=== PATIENT | male | born 1975 | race Caucasian/White ===

== ENCOUNTER 2018-05-09 12:46 | Emergency (ER) | payer MEDICAID ==
--- NOTE | 2018-05-09 13:17 | RAD ---
EXAM DESCRIPTION: Chest,1 View CLINICAL HISTORY: 43 years Male, right sided rhonchi COMPARISON: None. TECHNIQUE: AP portable chest. FINDINGS: Heart size is prominent with normal pulmonary vascularity. Slightly elevated right hemidiaphragm. No consolidating infiltrate. No pulmonary mass or worrisome nodule. No pneumothorax or pleural effusion. Bones are unremarkable. IMPRESSION: No acute process is identified in the chest. Electronically signed by: Edmundo Zurita MD 05/09/2018 1:16 PM CDT
[2018-05-09] MEDS ORDERED: LACTULOSE SYRUP 20 GM/30 ML UD PO ONE (14:00)
[2018-05-09] MEDS ORDERED: levETIRAcetam INJ 500 MG in SODIUM CHLORIDE 0.9% 100ML 100 ML IVPB ONE (15:00)
[2018-05-09] MEDS ORDERED: SODIUM CHLORIDE 0.9% 100ML 100 ML IVPB ONE (15:07)
[2018-05-09] MEDS ORDERED: levETIRAcetam INJ 100 MG/ML VIAL IVPB ONE (15:07)
[2018-05-09] MEDS ORDERED: SODIUM CHLORIDE 0.9% 1000ML 1,000 ML IVS ONE (16:05)
--- NOTE | 2018-05-09 16:58 | ED.PDOC ---
History of Present Illness - General Chief Complaint: Neuro Symptoms/Deficits Time Seen by Provider: 05/09/18 12:53 Source: patient Exam Limitations: clinical condition - History of Present Illness Initial Comments: the patient is a 43-year-old male presenting to the emergency room secondary to altered mental status. He was brought in from a hotel where he is staying. He has a history of seizure disorder along with some cirrhosis and some mild hepatic encephalopathy in the past. He does take seizure medications as well as lactulose. Additionally he has drug screen tested positive for marijuana and opiates of some form he does have Vicoprofen as a medication. The patient reports having had something of a partial seizure earlier. He remembers having a typical aura for him before. The patient was significantly confused upon arrival but over the next 30 minutes has become more alert and oriented. He is very tired. No focal neurological deficits. His was contacted for additional information. He did have a list of his medications as well as his contact information in his pockets. He reports that he has taken his seizure medications today but is due for his midday Keppra and clonazepam dosing. He reports his liver dysfunction is due to alcoholism and he has not drank in several years. Timing/Duration: unsure Severity: mild Improving Factors: nothing Worsening Factors: nothing Associated Symptoms: denies symptoms Allergies/Adverse Reactions: Allergies No Known Drug Allergy Allergy (Verified 05/09/18 12:54) Review of Systems - Review of Systems Constitutional: States: malaise, weakness EENTM: States: no symptoms reported Respiratory: States: no symptoms reported Cardiology: States: no symptoms reported Gastrointestinal/Abdominal: States: no symptoms reported Genitourinary: States: no symptoms reported Musculoskeletal: States: see HPI - the patient does have chronic pain issues Skin: States: no symptoms reported Neurological: States: see HPI Endocrine: States: no symptoms reported Hematologic/Lymphatic: States: no symptoms reported All other Systems: No Change from Baseline Past Medical History (General) - Patient Medical History Hx Seizures: Yes Hx Stroke: No Hx Dementia: No Hx Asthma: No Hx of COPD: No Hx Cardiac Disorders: No Hx Congestive Heart Failure: No Hx Pacemaker: No Hx Hypertension: Yes Hx Thyroid Disease: No Hx Diabetes: Yes Hx Gastroesophageal Reflux: No Hx Renal Disease: No Hx Cancer: No Hx of HIV: No Hx Hepatitis C: No Hx MRSA: No - Vaccination History Hx Tetanus, Diphtheria Vaccination: No Hx Influenza Vaccination: No Hx Pneumococcal Vaccination: No Immunizations Up to Date: No - Social History Hx Tobacco Use: Yes Hx Chewing Tobacco Use: No Hx Alcohol Use: Yes Hx Substance Use: No Hx Substance Use Treatment: No Hx Depression: No Feels Threatened In Home Enviroment: No Feels Threatened In a Relationship: No Hx Physical Abuse: No Hx Emotional Abuse: No Hx Suspected Abuse: No - Female History Patient is a Female of Child Bearing Age (10 -59 yrs old): No Patient : No Family Medical History - Family History Mother Family History: Unknown Physical Exam - Physical Exam General Appearance: Alert, No apparent distress, Other - the patient is drowsy Eye Exam: bilateral normal Ears, Nose, Throat: hearing grossly normal, normal ENT inspection, normal pharynx Neck: non-tender, full range of motion, supple Respiratory: lungs clear - the patient did have initial right-sided rhonchi however these have cleared with a couple of coughs., normal breath sounds, no respiratory distress, no accessory muscle use Cardiovascular/Chest: normal peripheral pulses, regular rate, rhythm, no edema Peripheral Pulses: radial,right: 2+, radial,left: 2+, dorsalis pedis,right: 2+, dorsalis pedis,left: 2+ Gastrointestinal/Abdominal: non tender, soft Rectal Exam: deferred Back Exam: no CVA tenderness Extremity: normal range of motion - for the patient chronically, non-tender - for any new pain, no pedal edema, normal capillary refill Neurologic: gis administrator II-XII nml as tested, alert, oriented x 3 Skin Exam: normal color Comments: Vital Signs - 24 hr 05/09/18 05/09/18 05/09/18 12:47 13:53 14:40 Temperature 98.6 F Pulse Rate [ 87 77 77 Apical] Pulse Rate [ 88 pical] Respiratory 18 18 18 Rate Blood Pressure 124/76 121/87 116/67 [Left Arm] O2 Sat by Pulse 93 L 92 L 95 Oximetry 05/09/18 15:45 Temperature Pulse Rate [ 80 Apical] Pulse Rate [ pical] Respiratory 18 Rate Blood Pressure 142/83 [Left Arm] O2 Sat by Pulse 95 Oximetry Progress - Progress Progress: 05/09/18 17:00 the patient's a 43-year-old male presenting to the emergency room and what appears to be essentially a post ictal state. We have not witnessed any seizure activity here since his arrival. Mental status has improved with simple monitoring. The patient did receive a dose of IV Keppra and an oral dose of lactulose as well as a liter of IV fluids. I see no evidence of any overt infection. There is no evidence of any acute trauma. I do recommend that he take another dose of his lactulose tonight around 7:30 or 8. His ammonia level was 48. I do not have any reference as to what his ammonia level normally runs as. ER warnings were given for any significant worsening. he is to keep follow-up with his primary care doctor in the next couple of weeks. He does need to remain compliant with his seizure medications. Additionally he should likely avoid marijuana as this sometimes can exacerbate seizure activity rather than helping it. - Results/Orders Results/Orders: Laboratory Tests 05/09/18 05/09/18 05/09/18 12:54 13:06 13:10 WBC RBC Hgb Hct MCV MCH MCHC RDW Plt Count MPV Absolute Neuts (auto) Absolute Lymphs (auto) Absolute Monos (auto) Absolute Eos (auto) Absolute Basos (auto) Neutrophils % Lymphocytes % Monocytes % Eosinophils % Basophils % PT INR PTT (SP) Sodium 137 Potassium 3.6 Chloride 103 Carbon Dioxide 24 Anion Gap 13.6 BUN 10 Creatinine 0.84 BUN/Creatinine Ratio 11.9 POC Glucose Random Glucose 104 Serum Osmolality 273.2 L Calcium 9.3 Total Bilirubin 0.8 AST 24 ALT 27 Alkaline Phosphatase 93 Ammonia 48 H Creatine Kinase 57 CK-MB (CK-2) 0.4 CK-MB (CK-2) % Not Reportable Troponin I < 0.02 B-Natriuretic Peptide < 5.0 Serum Total Protein 7.9 Albumin 4.3 Globulin 3.6 H Albumin/Globulin Ratio 1.2 Urine Color Urine Appearance Urine pH Ur Specific Bogard Urine Protein Urine Glucose (UA) Urine Ketones Urine Blood Urine Nitrite Urine Bilirubin Urine Urobilinogen Ur Leukocyte Esterase Urine RBC Urine WBC Ur Epithelial Cells Urine Bacteria Urine Opiates Screen Positive H Urine Barbiturates Negative Ur Phencyclidine Scrn Negative U Amphetamin/Meth Scrn Negative U Benzodiazepines Scrn Negative U Cocaine Metab Screen Negative U Cannabinoids Screen Positive H 05/09/18 05/09/18 05/09/18 13:10 13:10 13:27 WBC 9.6 RBC 4.27 L Hgb 14.8 Hct 42.6 MCV 99.7 H MCH 34.6 H MCHC 34.7 RDW 13.1 Plt Count 109 L MPV 8.1 Absolute Neuts (auto) 6.90 H Absolute Lymphs (auto) 1.80 Absolute Monos (auto) 0.50 Absolute Eos (auto) 0.30 Absolute Basos (auto) 0.10 Neutrophils % 71.8 Lymphocytes % 18.6 L Monocytes % 5.1 Eosinophils % 3.6 Basophils % 0.9 PT 15.5 H INR 1.56 H PTT (SP) 28.1 Sodium Potassium Chloride Carbon Dioxide Anion Gap BUN Creatinine BUN/Creatinine Ratio POC Glucose 98 Random Glucose Serum Osmolality Calcium Total Bilirubin AST ALT Alkaline Phosphatase Ammonia Creatine Kinase CK-MB (CK-2) CK-MB (CK-2) % Troponin I B-Natriuretic Peptide Serum Total Protein Albumin Globulin Albumin/Globulin Ratio Urine Color Urine Appearance Urine pH Ur Specific Bogard Urine Protein Urine Glucose (UA) Urine Ketones Urine Blood Urine Nitrite Urine Bilirubin Urine Urobilinogen Ur Leukocyte Esterase Urine RBC Urine WBC Ur Epithelial Cells Urine Bacteria Urine Opiates Screen Urine Barbiturates Ur Phencyclidine Scrn U Amphetamin/Meth Scrn U Benzodiazepines Scrn U Cocaine Metab Screen U Cannabinoids Screen 05/09/18 14:14 WBC RBC Hgb Hct MCV MCH MCHC RDW Plt Count MPV Absolute Neuts (auto) Absolute Lymphs (auto) Absolute Monos (auto) Absolute Eos (auto) Absolute Basos (auto) Neutrophils % Lymphocytes % Monocytes % Eosinophils % Basophils % PT INR PTT (SP) Sodium Potassium Chloride Carbon Dioxide Anion Gap BUN Creatinine BUN/Creatinine Ratio POC Glucose Random Glucose Serum Osmolality Calcium Total Bilirubin AST ALT Alkaline Phosphatase Ammonia Creatine Kinase CK-MB (CK-2) CK-MB (CK-2) % Troponin I B-Natriuretic Peptide Serum Total Protein Albumin Globulin Albumin/Globulin Ratio Urine Color Yellow Urine Appearance Clear Urine pH 5.5 Ur Specific Bogard <= 1.005 Urine Protein Negative Urine Glucose (UA) Negative Urine Ketones Negative Urine Blood Negative Urine Nitrite Negative Urine Bilirubin Negative Urine Urobilinogen 0.2 Ur Leukocyte Esterase Negative Urine RBC 0 Urine WBC 0 Ur Epithelial Cells 0 Urine Bacteria 0 Urine Opiates Screen Urine Barbiturates Ur Phencyclidine Scrn U Amphetamin/Meth Scrn U Benzodiazepines Scrn U Cocaine Metab Screen U Cannabinoids Screen chest x-ray is clear. - EKG/XRAY/CT CT Ordered: No CT Interpretation Call Back: No Departure - Departure Clinical Impression: Marijuana use Epilepsy Qualifiers: Epilepsy type: unspecified Intractability: not intractable Status epilepticus: without status epilepticus Qualified Code(s): G40.909 - Epilepsy, unspecified, not intractable, without status epilepticus Cirrhosis Qualifiers: Hepatic cirrhosis type: alcoholic cirrhosis Ascites presence: without ascites Qualified Code(s): K70.30 - Alcoholic cirrhosis of liver without ascites Disposition: Discharge to Home or Self Care Condition: Fair Departure Forms: ED Discharge - Pt. Copy, Patient Portal Self Enrollment Instructions: DI for Altered Mental Status Diet: regular diet Activity: increase activity as tolerated Referrals: WINSTON EUCEDA [Primary Care Provider] - 1-2 Weeks Additional Instructions: the patient's a 43-year-old male presenting to the emergency room and what appears to be essentially a post ictal state. We have not witnessed any seizure activity here since his arrival. Mental status has improved with simple monitoring. The patient did receive a dose of IV Keppra and an oral dose of lactulose as well as a liter of IV fluids. I see no evidence of any overt infection. There is no evidence of any acute trauma. I do recommend that he take another dose of his lactulose tonight around 7:30 or 8. His ammonia level was 48. I do not have any reference as to what his ammonia level normally runs as. ER warnings were given for any significant worsening. he is to keep follow-up with his primary care doctor in the next couple of weeks. He does need to remain compliant with his seizure medications. Additionally he should likely avoid marijuana as this sometimes can exacerbate seizure activity rather than helping it.
[2018-05-09 17:01] VITALS: BP 112/62; TEMP 98; O2SAT 98
== END 2018-05-09 17:15 | disposition home or self-care (01) ==
LOC: EDBD → ER 12:46
DX: K70.30 Alcoholic cirrhosis of liver without ascites (principal); G40.909 Epilepsy, unspecified, not intractable, without status epilepticus; F12.90 Cannabis use, unspecified, uncomplicated; R41.82 Altered mental status, unspecified; E11.9 Type 2 diabetes mellitus without complications; I10 Essential (primary) hypertension; Z79.899 Other long term (current) drug therapy
CPT/HCPCS: 36415; 36416; 71045; 80053; 80307; 81001; 82140; 82550; 82553; 82948; 83880; 84484; 85025; 85610; 85730; 93005; J7030; J7050

== ENCOUNTER 2018-05-11 09:25 | Emergency (ER) | payer MEDICAID ==
[2018-05-11 09:40] VITALS: TEMP 99.2; O2SAT 96
[2018-05-11] MEDS ORDERED: PANTOPRAZOLE SODIUM TAB 40 MG PO ONE (10:30)
[2018-05-11] MEDS ORDERED: ALUM & MAG HYDROX-SIMETHICONE 30 ML, LIDOCAINE VISCOUS 2% 15 ML PO ONE ×2 (10:30)
[2018-05-11] MEDS ORDERED: LIDOCAINE HCL 2% (MOUTH-THROAT) 15 ML UD ONE (10:37)
[2018-05-11] MEDS ORDERED: ALUM & MAG HYDROX-SIMETHICONE 30 ML UD ONE (10:37)
[2018-05-11] MEDS ORDERED: MAGNESIUM HYDROXIDE 30 ML UD PO ONE (11:00)
--- NOTE | 2018-05-11 11:15 | RAD ---
EXAM DESCRIPTION: Abdomen Series, including PA chest CLINICAL HISTORY: 43 years Male, abd pain, hx cirrhosis COMPARISON: Portable chest dated May 09, 2018. FINDINGS: Supine and erect views of the abdomen demonstrate an unremarkable bowel gas pattern, with no evidence of ileus or obstruction. Small amounts of small intestinal gas are noted, nonspecific. No pneumoperitoneum or gross organomegaly is identified. There is a rounded calcification measuring about 2.5 cm in diameter in the right upper abdomen, changing in position between the supine and erect views, likely due to a large stone within the gallbladder lumen. Degenerative and postoperative changes are noted in the lower lumbar spine. The PA chest view shows the lungs to be clear and the heart size within normal limits. There is probable minimal uncoiling of the thoracic aorta. No significant interval change is seen in the appearance of the chest since the prior study, considering technical differences. IMPRESSION: Probable gallstone. Otherwise essentially unremarkable abdominal series. No evidence of acute cardiopulmonary disease. Electronically signed by: Gary Arce MD 05/11/2018 11:14 AM CDT
--- NOTE | 2018-05-11 11:19 | ED.PDOC ---
History of Present Illness - General Chief Complaint: Abdominal Pain Stated Complaint: R abdominal discomfort Time Seen by Provider: 05/11/18 09:44 Source: patient Exam Limitations: no limitations - History of Present Illness Initial Comments: the patient is a 43-year-old male presenting back the emergency room. He was seen several days ago for altered mental status. He does have a history of cirrhosis and seizures. It was felt at that time that he was having a postictal state. The patient did clear up fairly well with simple monitoring. He did receive a dose of lactulose at that time as his ammonia level was slightly higher than his baseline. The patient did well over the following day however this morning he has woke up with some mild to moderate right upper quadrant discomfort. He also apparently has a history of intermittent biliary colic related to a large gallstone. Not surprisingly surgeons have not been here to take him back to surgery to remove his gallbladder. There has not been any evidence of any infection or obstruction to this time. The patient has not thrown up. He has not been nauseated. He does think he has a history of esophageal varices. He does take diuretics and propranolol to this end. He is not currently taking any acid reducing medications, and he does frequently have symptoms of reflux and gastritis. No fever. No generalized abdominal pain. No real altered mental status however the patient's does report that he has been a little more drowsy over the last couple of weeks since they have had multiple medication changes and received several more sedating medications to help him sleep at night. One of these does include Remeron. Additionally the patient is up approximately 5 pounds from 2 days ago. He has also been having some constipation issues with the lactulose not moving things through recently. Timing/Duration: unsure Severity: moderate Improving Factors: nothing Worsening Factors: nothing Associated Symptoms: malaise Allergies/Adverse Reactions: Allergies No Known Drug Allergy Allergy (Verified 05/11/18 09:40) Home Medications: Ambulatory Orders Omeprazole 40 mg PO DAILY #60 cap 05/11/18 Polyethylene Glycol 3350 [Miralax] 17 gm PO DAILY PRN 20 Days #20 pckt 05/11/18 Review of Systems - Review of Systems Constitutional: States: malaise EENTM: States: no symptoms reported Respiratory: States: no symptoms reported Cardiology: States: no symptoms reported Gastrointestinal/Abdominal: States: abdominal pain - right upper quadrant primarily, constipation. Denies: diarrhea, nausea, vomiting Genitourinary: States: no symptoms reported Musculoskeletal: States: other - e does have chronic back pain. Skin: States: no symptoms reported Neurological: States: see HPI Endocrine: States: no symptoms reported All other Systems: No Change from Baseline Past Medical History (General) - Patient Medical History Hx Seizures: Yes Hx Stroke: No Hx Dementia: No Hx Asthma: No Hx of COPD: No Hx Cardiac Disorders: No Hx Congestive Heart Failure: No Hx Pacemaker: No Hx Hypertension: Yes Hx Thyroid Disease: No Hx Diabetes: Yes - Neuropathy Hx Gastroesophageal Reflux: No Hx Renal Disease: No Hx Cancer: No Hx of HIV: No Hx Hepatitis C: No Hx MRSA: No Surgical History: appendectomy, other - Vaccination History Hx Tetanus, Diphtheria Vaccination: No Hx Influenza Vaccination: No Hx Pneumococcal Vaccination: No - Social History Hx Tobacco Use: Yes Hx Chewing Tobacco Use: No Hx Alcohol Use: Yes Hx Substance Use: Yes - Marijuana Hx Substance Use Treatment: No Hx Depression: No Hx Physical Abuse: No Hx Emotional Abuse: No Hx Suspected Abuse: No - Female History Patient : No Family Medical History - Family History Mother Family History: Unknown Physical Exam - Physical Exam General Appearance: Alert, Comfortable, No apparent distress Eye Exam: bilateral normal Ears, Nose, Throat: hearing grossly normal, normal ENT inspection, normal pharynx Neck: full range of motion, supple Respiratory: lungs clear, normal breath sounds, no respiratory distress, no accessory muscle use Cardiovascular/Chest: normal peripheral pulses, regular rate, rhythm, no edema Peripheral Pulses: radial,right: 2+, radial,left: 2+, dorsalis pedis,right: 2+, dorsalis pedis,left: 2+ Gastrointestinal/Abdominal: soft, other - the patient does have mild right upper quadrant and epigastric discomfort palpation. No rebound or peritoneal signs. No definite palpable mass.he may have a little more ascites onboard than his last visit. 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 He does appear to have some gastritis and reflux issues that need to be dealt with. The patient is going to be placed on omeprazole daily for the next couple of months. He can also take Maalox as needed. The patient also is up approximately 5 pounds from 2 days ago. He needs to take Lasix 80 mg each morning for the next 3 days to help get the fluid retention back under control. This along with the constipation is likely the most significant contributor to his abdominal pain currently. the patient was given a dose of milk of magnesia here for the constipation. He can also last picker MiraLAX intake at 17 g daily for the next 3 or 4 days and then as needed. He can also increase the amount of lactulose that he takes as needed to maintain a couple of loose bowel movements a day. As far as his gastritis issues, he may benefit from being switched to a different opiate other than the Vicoprofen. He will need to discuss this with his primary care doctor. Additionally for now, secondary to some mild drowsiness during the day, i would recommend decreasing the Remeron dose at night by half. He does have scored tablets that can be broken for this. He does take numerous other sedating medications so he may need to have further medication adjustments if this continues to be a problem. he does need to increase his physical activity some to help reduce constipation as well. He can discuss further with his primary care doctor at what point he needs to consider taking spontaneous bacterial peritonitis prophylaxic medications. I see no evidence to support spontaneous bacterial peritonitis as the cause of today's abdominal pain. Clinical exam and lab work did not point to this at this time. The patient is very interested in getting his gallbladder out as he does have frequent colicky symptoms. He will need to discuss this with a subspecialist. He is not at low risk for this surgery and he does understand that and does still wished to proceed. Laboratory work does not indicate any elevation in his liver function tests at this time. ER warnings are given for any significant worsening. the patient and his do understand the issues as mentioned above. - Results/Orders Results/Orders: acute abdominal series shows no evidence of any new infiltrate and no perforation. He does have some constipation in the ascending and transverse colon. No evidence of any obstruction. He does have a large gallstone. Laboratory Tests 05/11/18 05/11/18 05/11/18 10:16 10:16 10:16 WBC 6.6 RBC 4.39 L Hgb 15.4 Hct 43.4 MCV 98.9 H MCH 35.0 H MCHC 35.4 RDW 13.3 Plt Count 110 L MPV 8.5 Absolute Neuts (auto) 4.00 Absolute Lymphs (auto) 1.60 Absolute Monos (auto) 0.50 Absolute Eos (auto) 0.40 Absolute Basos (auto) 0.10 Neutrophils % 60.9 Lymphocytes % 24.3 Monocytes % 7.5 Eosinophils % 5.9 H Basophils % 1.4 PT 15.2 H INR 1.53 H PTT (SP) 28.3 Sodium 140 Potassium 3.7 Chloride 105 Carbon Dioxide 25 Anion Gap 13.7 BUN 8 Creatinine 0.87 BUN/Creatinine Ratio 9.2 L Random Glucose 105 Serum Osmolality 278.1 Lactic Acid Calcium 9.4 Magnesium 1.9 Total Bilirubin 0.7 AST 24 ALT 23 Alkaline Phosphatase 92 Ammonia Creatine Kinase 52 CK-MB (CK-2) 0.5 CK-MB (CK-2) % Not Reportable Troponin I < 0.02 B-Natriuretic Peptide < 5.0 Serum Total Protein 8.1 Albumin 4.2 Globulin 3.9 H Albumin/Globulin Ratio 1.1 Amylase 70 Lipase 60 H Urine Color Urine Appearance Urine pH Ur Specific [place] Urine Protein Urine Glucose (UA) Urine Ketones Urine Blood Urine Nitrite Urine Bilirubin Urine Urobilinogen Ur Leukocyte Esterase Urine RBC Urine WBC Ur Epithelial Cells Urine Bacteria Urine Opiates Screen Urine Barbiturates Ur Phencyclidine Scrn U Amphetamin/Meth Scrn U Benzodiazepines Scrn U Cocaine Metab Screen U Cannabinoids Screen 05/11/18 05/11/18 05/11/18 10:16 10:16 10:27 WBC RBC Hgb Hct MCV MCH MCHC RDW Plt Count MPV Absolute Neuts (auto) Absolute Lymphs (auto) Absolute Monos (auto) Absolute Eos (auto) Absolute Basos (auto) Neutrophils % Lymphocytes % Monocytes % Eosinophils % Basophils % PT INR PTT (SP) Sodium Potassium Chloride Carbon Dioxide Anion Gap BUN Creatinine BUN/Creatinine Ratio Random Glucose Serum Osmolality Lactic Acid 1.4 Calcium Magnesium Total Bilirubin AST ALT Alkaline Phosphatase Ammonia Creatine Kinase CK-MB (CK-2) CK-MB (CK-2) % Troponin I B-Natriuretic Peptide Serum Total Protein Albumin Globulin Albumin/Globulin Ratio Amylase Lipase Urine Color Yellow Urine Appearance Clear Urine pH 5.5 Ur Specific [place] 1.025 Urine Protein Negative Urine Glucose (UA) Negative Urine Ketones Trace Urine Blood Negative Urine Nitrite Negative Urine Bilirubin Small H Urine Urobilinogen 1.0 Ur Leukocyte Esterase Negative Urine RBC 0 Urine WBC 0 Ur Epithelial Cells 0 Urine Bacteria 0 Urine Opiates Screen Positive H Urine Barbiturates Negative Ur Phencyclidine Scrn Negative U Amphetamin/Meth Scrn Negative U Benzodiazepines Scrn Positive H U Cocaine Metab Screen Negative U Cannabinoids Screen Positive H 05/11/18 10:27 WBC RBC Hgb Hct MCV MCH MCHC RDW Plt Count MPV Absolute Neuts (auto) Absolute Lymphs (auto) Absolute Monos (auto) Absolute Eos (auto) Absolute Basos (auto) Neutrophils % Lymphocytes % Monocytes % Eosinophils % Basophils % PT INR PTT (SP) Sodium Potassium Chloride Carbon Dioxide Anion Gap BUN Creatinine BUN/Creatinine Ratio Random Glucose Serum Osmolality Lactic Acid Calcium Magnesium Total Bilirubin AST ALT Alkaline Phosphatase Ammonia 40 H Creatine Kinase CK-MB (CK-2) CK-MB (CK-2) % Troponin I B-Natriuretic Peptide Serum Total Protein Albumin Globulin Albumin/Globulin Ratio Amylase Lipase Urine Color Urine Appearance Urine pH Ur Specific [place] Urine Protein Urine Glucose (UA) Urine Ketones Urine Blood Urine Nitrite Urine Bilirubin Urine Urobilinogen Ur Leukocyte Esterase Urine RBC Urine WBC Ur Epithelial Cells Urine Bacteria Urine Opiates Screen Urine Barbiturates Ur Phencyclidine Scrn U Amphetamin/Meth Scrn U Benzodiazepines Scrn U Cocaine Metab Screen U Cannabinoids Screen Departure - Departure Clinical Impression: Has daytime drowsiness, Gallstones Alcoholic cirrhosis Qualifiers: Ascites presence: with ascites Qualified Code(s): K70.31 - Alcoholic cirrhosis of liver with ascites Gastritis Qualifiers: Gastritis type: unspecified gastritis Chronicity: chronic Gastritis bleeding: without bleeding Qualified Code(s): K29.50 - Unspecified chronic gastritis without bleeding Constipation Qualifiers: Constipation type: drug induced constipation Qualified Code(s): K59.03 - Drug induced constipation Disposition: Discharge to Home or Self Care Condition: Fair Departure Forms: ED Discharge - Pt. Copy, Patient Portal Self Enrollment Instructions: Gastritis (DC), Gallstones (DC), Constipation, Adult (DC) Diet: other - High fiber low protein Activity: increase activity as tolerated Referrals: WINSTON EUCEDA [Primary Care Provider] - 1-2 Weeks Prescriptions: Omeprazole 40 mg PO DAILY #60 cap Polyethylene Glycol 3350 [Miralax] 17 gm PO DAILY PRN 20 Days #20 pckt PRN Reason: Constipation Home Medications: Ambulatory Orders Omeprazole 40 mg PO DAILY #60 cap 05/11/18 Polyethylene Glycol 3350 [Miralax] 17 gm PO DAILY PRN 20 Days #20 pckt 05/11/18 Additional Instructions: the patient is a 43-year-old male with cirrhosis presenting secondary to some right upper quadrant and epigastric discomfort. He does appear to have some gastritis and reflux issues that need to be dealt with. The patient is going to be placed on omeprazole daily for the next couple of months. He can also take Maalox as needed. The patient also is up approximately 5 pounds from 2 days ago. He needs to take Lasix 80 mg each morning for the next 3 days to help get the fluid retention back under control. This along with the constipation is likely the most significant contributor to his abdominal pain currently. the patient was given a dose of milk of magnesia here for the constipation. He can also last picker MiraLAX intake at 17 g daily for the next 3 or 4 days and then as needed. He can also increase the amount of lactulose that he takes as needed to maintain a couple of loose bowel movements a day. As far as his gastritis issues, he may benefit from being switched to a different opiate other than the Vicoprofen. He will need to discuss this with his primary care doctor. Additionally for now, secondary to some mild drowsiness during the day, i would recommend decreasing the Remeron dose at night by half. He does have scored tablets that can be broken for this. He does take numerous other sedating medications so he may need to have further medication adjustments if this continues to be a problem. he does need to increase his physical activity some to help reduce constipation as well. He can discuss further with his primary care doctor at what point he needs to consider taking spontaneous bacterial peritonitis prophylaxic medications. I see no evidence to support spontaneous bacterial peritonitis as the cause of today's abdominal pain. Clinical exam and lab work did not point to this at this time. The patient is very interested in getting his gallbladder out as he does have frequent colicky symptoms. He will need to discuss this with a subspecialist. He is not at low risk for this surgery and he does understand that and does still wished to proceed. Laboratory work does not indicate any elevation in his liver function tests at this time. ER warnings are given for any significant worsening. the patient and his do understand the issues as mentioned above.
[2018-05-11 11:40] VITALS: BP 122/87
== END 2018-05-11 11:55 | disposition home or self-care (01) ==
LOC: ER 09:25
DX: K70.31 Alcoholic cirrhosis of liver with ascites (principal); K29.50 Unspecified chronic gastritis without bleeding; K59.03 Drug induced constipation; K80.20 Calculus of gallbladder without cholecystitis without obstruction; F12.90 Cannabis use, unspecified, uncomplicated; R53.81 Other malaise; K21.9 Gastro-esophageal reflux disease without esophagitis; G89.29 Other chronic pain; M54.9 Dorsalgia, unspecified; I10 Essential (primary) hypertension; E11.40 Type 2 diabetes mellitus with diabetic neuropathy, unspecified; Z79.899 Other long term (current) drug therapy; Z79.891 Long term (current) use of opiate analgesic; Z87.891 Personal history of nicotine dependence

== ENCOUNTER 2018-05-12 13:57 | Emergency (ER) | payer SELFPAY ==
[2018-05-12 14:32] VITALS: TEMP 98.6
--- NOTE | 2018-05-12 15:55 | ED.PDOC ---
History of Present Illness - General Chief Complaint: Neuro Symptoms/Deficits Stated Complaint: AMS Time Seen by Provider: 05/12/18 15:52 Source: family - Exam Limitations: no limitations - History of Present Illness Initial Comments: Yasir Rivera 43 y/o male with history of liver cirrhosis brought by with recurrent hallucinations since this am.He was seen here initially for abdominal pain and ammonia level was -40;Also had been spitting out blood this am noted bloody emesis.No hematemesis here at ER. stated that he was seeing things not there and about to get him stated was clinging to his on coming to er.Had history of seizure episodes seen at [facility] 3 weeks ago and had eeg done - not showing abnormalities. Timing/Duration: 24 hours Severity: moderate Improving Factors: nothing Worsening Factors: nothing Associated Symptoms: other - see hpi Allergies/Adverse Reactions: Allergies No Known Drug Allergy Allergy (Verified 05/11/18 09:40) Home Medications: Ambulatory Orders Omeprazole 40 mg PO DAILY #60 cap 05/11/18 Polyethylene Glycol 3350 [Miralax] 17 gm PO DAILY PRN 20 Days #20 pckt 05/11/18 Review of Systems - Review of Systems Constitutional: States: no symptoms reported EENTM: States: no symptoms reported Respiratory: States: no symptoms reported Cardiology: States: no symptoms reported Gastrointestinal/Abdominal: States: see HPI Genitourinary: States: no symptoms reported Musculoskeletal: States: back pain - chronic low back pain Skin: States: see HPI Endocrine: States: see HPI Hematologic/Lymphatic: States: no symptoms reported Past Medical History (General) - Patient Medical History Hx Seizures: Yes Hx Stroke: No Hx Dementia: No Hx Asthma: No Hx of COPD: No Hx Cardiac Disorders: No Hx Congestive Heart Failure: Yes Hx Pacemaker: No Hx Hypertension: Yes Hx Thyroid Disease: No Hx Diabetes: Yes Hx Gastroesophageal Reflux: Yes Hx Renal Disease: No Hx Cancer: No Hx of HIV: No Hx Hepatitis C: No Hx MRSA: No Hx Other PMH: Yes - alcoholic cirrhosis Surgical History: appendectomy, other - lumbar spine fusion x 3 - Vaccination History Hx Tetanus, Diphtheria Vaccination: No Hx Influenza Vaccination: No Hx Pneumococcal Vaccination: No Immunizations Up to Date: No - Social History Hx Tobacco Use: Yes Hx Chewing Tobacco Use: No Hx Alcohol Use: Yes - history -sober x 3 years;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 Hx Substance Use: No Hx Substance Use Treatment: No Hx Depression: No Feels Threatened In Home Enviroment: No Feels Threatened In a Relationship: No Hx Physical Abuse: No Hx Emotional Abuse: No Hx Suspected Abuse: No - Activities of Daily Living Patient Lives Alone: No Hospice Agency (if applicable):: None - Female History Patient is a Female of Child Bearing Age (10 -59 yrs old): No Patient : No Family Medical History - Family History Mother Family History: Unknown Hx Family Hypertension: Yes - dad Physical Exam - Physical Exam General Appearance: No apparent distress, Lethargic Eye Exam: bilateral normal Neck: supple, normal inspection Respiratory: chest non-tender, lungs clear, normal breath sounds Cardiovascular/Chest: normal peripheral pulses, regular rate, rhythm, no murmur Peripheral Pulses: radial,right: 2+, radial,left: 2+ Gastrointestinal/Abdominal: normal bowel sounds, non tender, soft, no organomegaly Extremity: non-tender, no pedal edema, no calf tenderness Neurologic: other - lethargic;negative Babinski Skin Exam: normal color, warm/dry Lymphatic: no adenopathy Progress - Progress Progress: 05/12/18 17:54 Vital Signs - 24 hr 05/12/18 05/12/18 05/12/18 13:58 14:58 16:40 Temperature 98.6 F Pulse Rate [ 107 H 99 H 99 H Apical] Respiratory 18 18 18 Rate Blood Pressure 151/83 151/88 124/59 [Left Arm] O2 Sat by Pulse 97 96 98 Oximetry 05/12/18 17:57 Patient had 2 seizure episodes here at ER and given Lorazepam 1.5 mg iv . 05/12/18 17:58 Patient more alert ,cooperative talking to nurses and his ;no hematemesis 05/12/18 18:29 - Results/Orders Results/Orders: 05/12/18 15:45 EKG STAT 05/12/18 17:46 stool [FECAL OCCULT BLOOD] Stat Laboratory Results - last 24 hr 05/12/18 05/12/18 05/12/18 14:40 14:40 15:54 WBC 6.7 RBC 4.39 L Hgb 15.1 Hct 43.6 MCV 99.4 H MCH 34.3 H MCHC 34.7 RDW 13.3 Plt Count 112 L MPV 8.3 Absolute Neuts (auto) 3.90 Absolute Lymphs (auto) 1.90 Absolute Monos (auto) 0.40 Absolute Eos (auto) 0.30 Absolute Basos (auto) 0.10 Neutrophils % 58.9 Lymphocytes % 29.1 Monocytes % 6.3 Eosinophils % 4.6 Basophils % 1.1 PT 15.6 H INR 1.57 H PTT (SP) 28.0 Sodium 138 Potassium 3.3 L Chloride 103 Carbon Dioxide 26 Anion Gap 12.3 BUN 6 L Creatinine 0.97 BUN/Creatinine Ratio 6.2 L Random Glucose 131 H Serum Osmolality 275.1 Calcium 9.3 Magnesium 1.9 Total Bilirubin Direct Bilirubin Indirect Bilirubin AST ALT Alkaline Phosphatase Ammonia 42 H Creatine Kinase 48 CK-MB (CK-2) 0.4 CK-MB (CK-2) % Not Reportable Troponin I < 0.02 Serum Total Protein Albumin Urine Color Urine Appearance Urine pH Ur Specific [place] Urine Protein Urine Glucose (UA) Urine Ketones Urine Blood Urine Nitrite Urine Bilirubin Urine Urobilinogen Ur Leukocyte Esterase Urine RBC Urine WBC Ur Epithelial Cells Urine Bacteria Urine Opiates Screen Negative Urine Barbiturates Negative Ur Phencyclidine Scrn Negative U Amphetamin/Meth Scrn Negative U Benzodiazepines Scrn Negative U Cocaine Metab Screen Negative U Cannabinoids Screen Negative 05/12/18 05/12/18 16:28 Unknown WBC RBC Hgb Hct MCV MCH MCHC RDW Plt Count MPV Absolute Neuts (auto) Absolute Lymphs (auto) Absolute Monos (auto) Absolute Eos (auto) Absolute Basos (auto) Neutrophils % Lymphocytes % Monocytes % Eosinophils % Basophils % PT INR PTT (SP) Sodium Potassium Chloride Carbon Dioxide Anion Gap BUN Creatinine BUN/Creatinine Ratio Random Glucose Serum Osmolality Calcium Magnesium Total Bilirubin 0.7 Direct Bilirubin 0.1 Indirect Bilirubin 0.6 AST 24 ALT 22 Alkaline Phosphatase 94 Ammonia Creatine Kinase CK-MB (CK-2) CK-MB (CK-2) % Troponin I Serum Total Protein 7.9 Albumin 4.2 Urine Color Yellow Urine Appearance Clear Urine pH 7.0 Ur Specific [place] 1.010 Urine Protein Negative Urine Glucose (UA) Negative Urine Ketones Negative Urine Blood Negative Urine Nitrite Negative Urine Bilirubin Negative Urine Urobilinogen 0.2 Ur Leukocyte Esterase Negative Urine RBC 0 Urine WBC 0 Ur Epithelial Cells 0 Urine Bacteria 0 Urine Opiates Screen Urine Barbiturates Ur Phencyclidine Scrn U Amphetamin/Meth Scrn U Benzodiazepines Scrn U Cocaine Metab Screen U Cannabinoids Screen - EKG/XRAY/CT EKG: Sinus, Tachy, no ST T wave changes Comments: HR-92 XRAY: chest - no active pulmonary disease CT Ordered: Yes - head-no acute intracranial abnormalities CT Interpretation Call Back: No Departure - Departure Clinical Impression: Seizure disorder, secondary, Hallucinations, History of hematemesis Altered mental status Qualifiers: Altered mental status type: transient alteration of awareness Qualified Code(s) : R40.4 - Transient alteration of awareness Liver cirrhosis, alcoholic Qualifiers: Ascites presence: without ascites Qualified Code(s): K70.30 - Alcoholic cirrhosis of liver without ascites Time of Disposition: 18:32 Condition: Fair Departure Forms: ED Discharge - Pt. Copy, Patient Portal Self Enrollment Referrals: WINSTON EUCEDA [Primary Care Provider] - 1-2 Weeks Home Medications: Ambulatory Orders Omeprazole 40 mg PO DAILY #60 cap 05/11/18 Polyethylene Glycol 3350 [Miralax] 17 gm PO DAILY PRN 20 Days #20 pckt 05/11/18 Transfer to Outside Facility - Transfer Information Accepting Provider:: Dr. Ramses Altman Accepting Facility: [facility] Reason for Transfer: Gastroenerologist -D/W Dr. Gandara
[2018-05-12] MEDS ORDERED: OCTREOTIDE ACETATE 100 MCG/ML VIAL SUBCU ONE (15:58)
[2018-05-12] MEDS ORDERED: SODIUM CHLORIDE 0.9% 500ML 500 ML IVS ONE (15:58)
--- NOTE | 2018-05-12 16:32 | RAD ---
EXAM: Chest,1 View CLINICAL INDICATION: Alteration of consciousness COMPARISON: 05/09/2018 FINDINGS: A single view of the chest was obtained. The heart size is normal. The pulmonary vascularity is unremarkable. The lungs are clear. There is no consolidation, infiltrate, pleural effusion, or pneumothorax. IMPRESSION: No evidence of active pulmonary disease. Electronically signed by: Pb Jesus MD 05/12/2018 4:30 PM CDT
--- NOTE | 2018-05-12 16:33 | CT ---
PROCEDURE: Head CLINICAL HISTORY: 43 years Male seizure COMPARISON: None. TECHNIQUE: Contiguous axial CT images obtained through the brain without IV contrast. This exam was performed according to our department optimization program which includes automated exposure control, adjustment of the mA and/or kv according to patient size and/or use of iterative reconstruction technique. FINDINGS: The ventricles and sulci are within normal limits for the patient's age. No midline shift or mass effect. No masses identified. No acute intracranial hemorrhage. Mucosal thickening in ethmoid air cells. No depressed calvarial fractures. Scattered foci of vascular calcification are present in the vertebral arteries and carotid arteries IMPRESSION: No acute intracranial abnormality is identified. Electronically signed by: Brittany Torres MD 05/12/2018 4:32 PM CDT
[2018-05-12 17:48] VITALS: O2SAT 98
[2018-05-12 18:33] VITALS: BP 128/76
[2018-05-12] MEDS ORDERED: SODIUM CHLORIDE 0.9% 1000ML 1,000 ML ONE (18:36)
[2018-05-12] MEDS ORDERED: NALOXONE HCL INJ 1 MG/ML SYG ONE (18:43)
[2018-05-12] MEDS ORDERED: MORPHINE SULFATE INJ 10 MG/ML VIAL IV ONE (18:44)
== END 2018-05-12 19:30 | disposition short-term general hospital (02) ==
LOC: ER 13:57
DX: R40.4 Transient alteration of awareness (principal); G40.909 Epilepsy, unspecified, not intractable, without status epilepticus; K70.30 Alcoholic cirrhosis of liver without ascites; R44.1 Visual hallucinations; I11.0 Hypertensive heart disease with heart failure; I50.9 Heart failure, unspecified; K21.9 Gastro-esophageal reflux disease without esophagitis; F10.11 Alcohol abuse, in remission; Z79.899 Other long term (current) drug therapy; Z87.891 Personal history of nicotine dependence
CPT/HCPCS: 36415; 70450; 71045; 80048; 80076; 80307; 81001; 82140; 82270; 82550; 82553; 84484; 85025; 85610; 85730; 93005; J2060; J2270; J2354; J7030; J7040

== ENCOUNTER 2018-05-18 13:42 | Emergency (ER) | payer SELFPAY ==
--- NOTE | 2018-05-18 14:25 | ED.PDOC ---
History of Present Illness - General Chief Complaint: General Stated Complaint: slurred speech, unsteady balance Time Seen by Provider: 05/18/18 14:05 Source: patient, family Exam Limitations: clinical condition - History of Present Illness Initial Comments: Patient and his both give the history. 43 yo former alcohol abuser, sober for 3 years, has cirrhosis and NIDDM as well as chronic intermittent ataxia and slurred speech presents with increasing ataxia, confusion, and slurred speech for one hour. He was coughing up some blood yesterday but has not done that today. Last BM today was "normal". He says he has esophageal varices. He also has a history of seizures from " the buildup of toxins" and takes Keppra for that. He has had a seizure in the last month. Last CT head was one month ago but he has fallen and hit his head from a seizure since then. The says she has to help him walk from his increasing ataxia. He is more difficult to understand than normal. No other complaints. Timing/Duration: changing over time, intermittent, other - worse over the past hour Severity: moderate Improving Factors: nothing Worsening Factors: nothing Associated Symptoms: denies symptoms Allergies/Adverse Reactions: Allergies No Known Drug Allergy Allergy (Verified 05/11/18 09:40) Home Medications: Ambulatory Orders Polyethylene Glycol 3350 [Miralax] 17 gm PO DAILY PRN 20 Days #20 pckt 05/11/18 Clonazepam [Klonopin] 1 mg PO TID 05/18/18 Furosemide [Lasix] 40 mg PO 05/18/18 Gabapentin 1,200 mg PO TID 05/18/18 Lactulose (Encephalopathy) [Lactulose] 10 gm PO TID 05/18/18 Levetiracetam [Keppra] 400 mg PO QID 05/18/18 Spironolactone 50 mg PO BID 05/18/18 Review of Systems - Review of Systems Constitutional: States: weakness EENTM: States: see HPI Respiratory: States: no symptoms reported Cardiology: States: no symptoms reported Gastrointestinal/Abdominal: States: see HPI Genitourinary: States: no symptoms reported Musculoskeletal: States: no symptoms reported Skin: States: other - fluctuating jaundice Neurological: States: see HPI Endocrine: States: see HPI Hematologic/Lymphatic: States: other - patient has thrombocytopenia secondary to cirrhosis Past Medical History (General) - Patient Medical History Hx Seizures: Yes Hx Stroke: No Hx Dementia: No Hx Asthma: No Hx of COPD: No Hx Cardiac Disorders: No Hx Congestive Heart Failure: No Hx Pacemaker: No Hx Hypertension: Yes Hx Thyroid Disease: No Hx Diabetes: Yes Hx Gastroesophageal Reflux: Yes Hx Renal Disease: No Hx Cancer: No Hx of HIV: No Hx Hepatitis C: No Hx MRSA: No Surgical History: appendectomy - Vaccination History Hx Tetanus, Diphtheria Vaccination: No Hx Influenza Vaccination: No Hx Pneumococcal Vaccination: No - Social History Hx Tobacco Use: Yes Hx Chewing Tobacco Use: No Hx Alcohol Use: Yes - history -sober x 3 years;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 Hx Substance Use: No Hx Substance Use Treatment: No Hx Depression: No Hx Physical Abuse: No Hx Emotional Abuse: No Hx Suspected Abuse: No - Female History Patient : No - Triage Comment ED Triage Comment: Pt walked to stretcher with assistance and cane. Family Medical History - Family History Mother Family History: Unknown Hx Family Hypertension: Yes - dad Physical Exam - Physical Exam General Appearance: Lethargic Eye Exam: bilateral scleral icterus Ears, Nose, Throat: normal ENT inspection Neck: non-tender, full range of motion, supple Respiratory: lungs clear, normal breath sounds Cardiovascular/Chest: normal peripheral pulses, regular rate, rhythm, no edema Gastrointestinal/Abdominal: normal bowel sounds, non tender, soft, distended Back Exam: no CVA tenderness Extremity: normal range of motion, other - shakiness in left arm and leg that he says is chronic 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 There is shakiness with elevation of the left leg. Full sensation on the right UE and right LE. There mildly diminished sensation of the LLE. The patient says this is chronic. Skin Exam: normal color Lymphatic: no adenopathy Progress - Progress Progress: 05/18/18 15:55 CT head negative for bleed. Ammonia 45. This is not very high for this patient. I am concerned about his upper GI bleeding that he has photographed and says his FOBT was positive at [facility]. I am also concerned about his worsening AMS and uncontrolled seizure. Transferring to [facility]. I have spoken with Dr. Stephens from Neurology and Dr. Sampson from GI. Will start Octreotide here. Have given Ativan 2 mg IV x one after a witnessed seizure on the way back from [place]. Patient is currently stable and sleeping. Departure - Departure Clinical Impression: Altered mental status, Hyperammonemia, Seizure, Upper GI bleed Disposition: Transfer to Hospital Condition: Fair Departure Forms: ED Discharge - Pt. Copy, Patient Portal Self Enrollment Diet: other - NPO Referrals: WINSTON EUCEDA [Primary Care Provider] - 1-2 Weeks Home Medications: Ambulatory Orders Polyethylene Glycol 3350 [Miralax] 17 gm PO DAILY PRN 20 Days #20 pckt 05/11/18 Clonazepam [Klonopin] 1 mg PO TID 05/18/18 Furosemide [Lasix] 40 mg PO 05/18/18 Gabapentin 1,200 mg PO TID 05/18/18 Lactulose (Encephalopathy) [Lactulose] 10 gm PO TID 05/18/18 Levetiracetam [Keppra] 400 mg PO QID 05/18/18 Spironolactone 50 mg PO BID 05/18/18
--- NOTE | 2018-05-18 15:02 | CT ---
EXAM DESCRIPTION: Head CLINICAL HISTORY: ataxia, history of alcoholism and fall with seizure COMPARISON: May 12, 2018 TECHNIQUE: Contiguous axial images of the brain were obtained without the administration of intravenous contrast. This exam was performed according to our departmental dose-optimization program, which includes automated exposure control, adjustment of the mA and/or kV according to patient size and/or use of iterative reconstruction technique. FINDINGS: There is no acute intracranial hemorrhage or mass effect. Ventricular system is within normal limits. There is adequate davidson-white matter differentiation. There is no skull fracture. The visualized paranasal sinuses and mastoid air cells are within normal limits. IMPRESSION: No acute intracranial abnormalities. Electronically signed by: Lars Anderson MD 05/18/2018 3:00 PM CDT
[2018-05-18] MEDS ORDERED: OCTREOTIDE ACETATE 50 MCG in SODIUM CHLORIDE 0.9% 100ML 100 ML IVPB ONE (15:32)
[2018-05-18] MEDS ORDERED: OCTREOTIDE ACETATE 100 MCG/ML VIAL ONE (15:34)
[2018-05-18] MEDS ORDERED: SODIUM CHLORIDE 0.9% 100ML 100 ML IVPB ONE ×2 (15:34→16:00)
--- NOTE | 2018-05-18 15:51 | RAD ---
PROCEDURE: XR CHEST 1 VIEW HISTORY: hemoptysis COMPARISON: 05/12/2018 TECHNIQUE: Single projection of the chest was done. FINDINGS: The lung mac are well inflated . There are no discrete airspace infiltrates, pneumothoraces or pleural effusions. The pulmonary vascularity is normal. The cardiomediastinal silhouette is unremarkable for patient's age and sex. IMPRESSION: There is no acute pleural-parenchymal process seen in the imaged lung mac. Location of Interpretation: Teleradiology Electronically signed by: Toribio Dickens MD 05/18/2018 3:49 PM CDT Workstation: [id number]
[2018-05-18] MEDS ORDERED: OCTREOTIDE ACETATE 100 MCG/ML VIAL INJ ONE (16:00)
[2018-05-18] MEDS ORDERED: OCTREOTIDE ACETATE 500 MCG in SODIUM CHLORIDE 0.9% 100ML 100 ML IVPB SCH (16:00)
[2018-05-18] MEDS ORDERED: MORPHINE SULFATE INJ 10 MG/ML VIAL IV ONE (16:18)
[2018-05-18] MEDS ORDERED: ONDANSETRON INJ 4 MG/2 ML VIAL IV ONE (16:18)
[2018-05-18 16:21] VITALS: O2SAT 96
[2018-05-18 16:30] VITALS: BP 130/84; TEMP 97.9
== END 2018-05-18 16:35 | disposition short-term general hospital (02) ==
LOC: ER 13:42
DX: R41.82 Altered mental status, unspecified (principal); R79.89 Other specified abnormal findings of blood chemistry; R56.9 Unspecified convulsions; R04.2 Hemoptysis; R27.0 Ataxia, unspecified; R47.81 Slurred speech; K70.30 Alcoholic cirrhosis of liver without ascites; D69.59 Other secondary thrombocytopenia; F10.11 Alcohol abuse, in remission; Z79.899 Other long term (current) drug therapy; I10 Essential (primary) hypertension; E11.9 Type 2 diabetes mellitus without complications; K21.9 Gastro-esophageal reflux disease without esophagitis; Z87.891 Personal history of nicotine dependence; Z90.49 Acquired absence of other specified parts of digestive tract
CPT/HCPCS: 36415; 70450; 71045; 80053; 80307; 80320; 80329; 81001; 82140; 82948; 84436; 84443; 85025; J2060; J2270; J2354; J2405; J7050

== ENCOUNTER 2018-05-21 03:21 | Emergency (ER) | payer SELFPAY ==
[2018-05-21 03:50] VITALS: TEMP 98.2
--- NOTE | 2018-05-21 04:05 | ED.PDOC ---
History of Present Illness - General Source: patient Exam Limitations: no limitations - History of Present Illness Initial Comments: Yaisr Rivera 43 y/o male brought by Richard ORTEGA after calling up suicide hotline that he was depressed after girlfriend left him and wants to harm himself.cortes.Has history of alcoholic liver cirrhosis and seizures.He was transferred to [facility] after reported episode of UGI bleeding but reviewed visit 2 days ago there was no change in Hgb/Hct level 15.3/43.9 w/c was stable. Timing/Duration: this evening Severity: moderate Episode Description: harm to self Associated Symptoms: suicidal ideation <Scout Beltre - Last Filed: 05/21/18 06:12> <Guerrreo Vasquez - Last Filed: 05/21/18 07:37> - General Chief Complaint: Behavioral / Psych Stated Complaint: suicidal Time Seen by Provider: 05/21/18 03:26 - History of Present Illness Allergies/Adverse Reactions: Allergies No Known Drug Allergy Allergy (Verified 05/11/18 09:40) Home Medications: Ambulatory Orders Polyethylene Glycol 3350 [Miralax] 17 gm PO DAILY PRN 20 Days #20 pckt 05/11/18 Clonazepam [Klonopin] 1 mg PO TID 05/18/18 Furosemide [Lasix] 40 mg PO 05/18/18 Gabapentin 1,200 mg PO TID 05/18/18 Lactulose (Encephalopathy) [Lactulose] 10 gm PO TID 05/18/18 Levetiracetam [Keppra] 400 mg PO QID 05/18/18 Spironolactone 50 mg PO BID 05/18/18 Propranolol HCl 10 mg PO 05/21/18 QUEtiapine FUMARATE [SEROquel] 100 mg PO 05/21/18 Review of Systems - Review of Systems Constitutional: States: no symptoms reported EENTM: States: no symptoms reported Respiratory: States: no symptoms reported Cardiology: States: no symptoms reported Gastrointestinal/Abdominal: States: see HPI Genitourinary: States: no symptoms reported Skin: States: no symptoms reported Neurological: States: see HPI, depressed, emotional problems <Scout Beltre - Last Filed: 05/21/18 06:12> Past Medical History (General) - Patient Medical History Hx Seizures: Yes Hx Stroke: No Hx Dementia: No Hx Asthma: No Hx of COPD: No Hx Cardiac Disorders: No Hx Congestive Heart Failure: No Hx Pacemaker: No Hx Hypertension: Yes Hx Thyroid Disease: No Hx Diabetes: Yes Hx Gastroesophageal Reflux: Yes Hx Renal Disease: No Hx Cancer: No Hx of HIV: No Hx Hepatitis C: No Hx MRSA: No Surgical History: appendectomy, other - lumbar spine fusion - Vaccination History Hx Tetanus, Diphtheria Vaccination: Yes Hx Influenza Vaccination: No Hx Pneumococcal Vaccination: No - Social History Hx Tobacco Use: Yes Hx Chewing Tobacco Use: No Hx Alcohol Use: Yes - former sober for 3 years Hx Substance Use: No Hx Substance Use Treatment: No Hx Depression: No Hx Physical Abuse: No Hx Emotional Abuse: No Hx Suspected Abuse: No - Female History Patient : No - Triage Comment ED Triage Comment: states is suicidal and wants to go to psych facility, chairman & chief 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 officer contacted [facility], and they want medical clearance <Scout Beltre R - Last Filed: 05/21/18 06:12> Family Medical History - Family History Mother Family History: Unknown Hx Family Hypertension: Yes - dad <Scout Beltre R - Last Filed: 05/21/18 06:12> Physical Exam - Physical Exam General Appearance: Alert, Comfortable, No apparent distress Eyes, Ears, Nose, Throat Exam: normal ENT inspection, other - no jaundice Neck: supple, normal inspection Respiratory: lungs clear, normal breath sounds Cardiovascular/Chest: normal peripheral pulses, regular rate, rhythm, no murmur Peripheral Pulses: radial,right: 2+, radial,left: 2+ Gastrointestinal/Abdominal: non tender, soft, distended Extremities Exam: non-tender, no edema Neurological: alert, calm, depressed affect Appearance: appropriate appearance, neat Behavior/Eye Contact/Speech: cooperative, good eye contact, normal speech Thoughts/Hallucinations: normal thought pattern, no apparent hallucination Skin Exam: normal color, warm/dry <Scout Beltre R - Last Filed: 05/21/18 06:12> Progress - Progress Progress: 05/21/18 06:13 Vital Signs - 24 hr 05/21/18 05/21/18 03:47 05:23 Temperature 98.2 F 98.2 F Pulse Rate [ 88 80 Right] Respiratory 16 16 Rate Blood Pressure 109/69 104/70 [Right Arm] O2 Sat by Pulse 96 97 Oximetry <Scout Beltre R - Last Filed: 05/21/18 06:12> - Progress Progress: 05/21/18 07:26 THE UDS IS POSITIVE FOR CANABINOIDS, AMPHETAMINES AND BENZODIAZEPINES. 05/21/18 07:36 THE PATIENT LEFT AMA <Guerrero Vasquez - Last Filed: 05/21/18 07:37> Departure <Scout Beltre R - Last Filed: 05/21/18 06:12> - Departure Time of Disposition: 07:37 <Guerrero Vasquez - Last Filed: 05/21/18 07:37> - Departure Clinical Impression: Suicidal ideations Depression (emotion) Qualifiers: Depression Type: unspecified Qualified Code(s): F32.9 - Major depressive disorder, single episode, unspecified Liver cirrhosis Qualifiers: Hepatic cirrhosis type: alcoholic cirrhosis Ascites presence: without ascites Qualified Code(s): K70.30 - Alcoholic cirrhosis of liver without ascites Disposition: Left Against Medical Advice Referrals: WINSTON EUCEDA [Referring] - 1-2 Weeks Home Medications: Ambulatory Orders Polyethylene Glycol 3350 [Miralax] 17 gm PO DAILY PRN 20 Days #20 pckt 05/11/18 Clonazepam [Klonopin] 1 mg PO TID 05/18/18 Furosemide [Lasix] 40 mg PO 05/18/18 Gabapentin 1,200 mg PO TID 05/18/18 Lactulose (Encephalopathy) [Lactulose] 10 gm PO TID 05/18/18 Levetiracetam [Keppra] 400 mg PO QID 05/18/18 Spironolactone 50 mg PO BID 05/18/18 Propranolol HCl 10 mg PO 05/21/18 QUEtiapine FUMARATE [SEROquel] 100 mg PO 05/21/18
[2018-05-21] MEDS ORDERED: SODIUM CHLORIDE 0.9% 1000ML 1,000 ML IVS ONE (04:14)
[2018-05-21 06:06] VITALS: BP 104/70; O2SAT 97
== END 2018-05-21 07:36 | disposition left against medical advice (07) ==
LOC: ER 03:21
DX: R45.851 Suicidal ideations (principal); F32.9 Major depressive disorder, single episode, unspecified; K70.30 Alcoholic cirrhosis of liver without ascites; F12.90 Cannabis use, unspecified, uncomplicated; F15.90 Other stimulant use, unspecified, uncomplicated; F13.90 Sedative, hypnotic, or anxiolytic use, unspecified, uncomplicated; E11.9 Type 2 diabetes mellitus without complications; K21.9 Gastro-esophageal reflux disease without esophagitis; I10 Essential (primary) hypertension; Z53.29 Procedure and treatment not carried out because of patient's decision for other reasons; Z79.899 Other long term (current) drug therapy
CPT/HCPCS: 36415; 80053; 80307; 80329; 85025; J7030

== ENCOUNTER 2018-05-21 18:33 | Emergency (ER) | payer OTHER ==
--- NOTE | 2018-05-21 21:05 | CT ---
EXAM DESCRIPTION: Head CLINICAL HISTORY: HEAD INJURY, HX OF THROMBOCYTOPENIA COMPARISON: CT head May 18, 2018. TECHNIQUE: Multiple helical axial tomographic images were obtained of the head without intravenous contrast. This exam was performed according to our departmental dose-optimization program, which includes automated exposure control, adjustment of the mA and/or kV according to patient size and/or use of iterative reconstruction technique. FINDINGS: There is no acute intracranial hemorrhage. No mass. No midline shift. No ventriculomegaly. Truong-white matter differentiation is maintained. Mild ethmoid sinus mucosal thickening is present. Mastoid air cells and middle ear spaces are clear. Orbits and orbital contents are unremarkable. Osseous structures are unremarkable. Surrounding soft tissues are unremarkable. IMPRESSION: No acute intracranial process. Electronically signed by: Jorge Bardales MD 05/21/2018 9:03 PM CDT
--- NOTE | 2018-05-21 22:15 | ED.PDOC ---
History of Present Illness - General Chief Complaint: Neuro Symptoms/Deficits Time Seen by Provider: 05/21/18 20:34 Source: patient - History of Present Illness Initial Comments: THIS PATIENT WAS HERE EARLIER TODAY WITH SUICIDAL IDEATION AND ELECTED TO LEAVE AMA. HE HAS SEIZURES AND HAD ONE TODAY, NOW IN CUSTODY. HE HAS CIRRHOSIS OF THE LIVER AND HAS ELEVATION OF PT INR AND ALSO HAS THROBOCYTOPENIA. HE HAD A UDS + EARLIER TODAY. Timing/Duration: 1 hour Improving Factors: nothing Worsening Factors: nothing Associated Symptoms: denies symptoms Allergies/Adverse Reactions: Allergies No Known Drug Allergy Allergy (Verified 05/11/18 09:40) Home Medications: Ambulatory Orders Polyethylene Glycol 3350 [Miralax] 17 gm PO DAILY PRN 20 Days #20 pckt 05/11/18 Clonazepam [Klonopin] 1 mg PO TID 05/18/18 Furosemide [Lasix] 40 mg PO 05/18/18 Gabapentin 1,200 mg PO TID 05/18/18 Lactulose (Encephalopathy) [Lactulose] 10 gm PO TID 05/18/18 Levetiracetam [Keppra] 400 mg PO QID 05/18/18 Spironolactone 50 mg PO BID 05/18/18 Propranolol HCl 10 mg PO 05/21/18 QUEtiapine FUMARATE [SEROquel] 100 mg PO 05/21/18 Review of Systems - Review of Systems Constitutional: States: no symptoms reported EENTM: States: no symptoms reported Respiratory: States: no symptoms reported Cardiology: States: no symptoms reported Gastrointestinal/Abdominal: States: no symptoms reported Genitourinary: States: no symptoms reported Musculoskeletal: States: no symptoms reported Skin: States: no symptoms reported Neurological: States: anxiety, depressed, emotional problems, headache Endocrine: States: no symptoms reported Hematologic/Lymphatic: States: no symptoms reported Past Medical History (General) - Patient Medical History Hx Seizures: Yes Hx Stroke: No Hx Dementia: No Hx Asthma: No Hx of COPD: No Hx Cardiac Disorders: No Hx Congestive Heart Failure: No Hx Pacemaker: No Hx Hypertension: Yes Hx Thyroid Disease: No Hx Diabetes: Yes Hx Gastroesophageal Reflux: Yes Hx Renal Disease: No Hx Cancer: No Hx of HIV: No Hx Hepatitis C: No Hx MRSA: No - Vaccination History Hx Tetanus, Diphtheria Vaccination: No Hx Influenza Vaccination: No Hx Pneumococcal Vaccination: No Immunizations Up to Date: No - Social History Hx Tobacco Use: Yes Hx Chewing Tobacco Use: No Hx Alcohol Use: No Hx Substance Use: No Hx Substance Use Treatment: No Hx Depression: Yes Feels Threatened In Home Enviroment: No Feels Threatened In a Relationship: No Hx Physical Abuse: No Hx Emotional Abuse: No Hx Suspected Abuse: No - Activities of Daily Living Hospice Agency (if applicable):: None - Female History Patient is a Female of Child Bearing Age (10 -59 yrs old): No Patient : No Family Medical History - Family History Mother Family History: Unknown Hx Family Hypertension: Yes - dad Physical Exam - Physical Exam General Appearance: Alert, Anxious, Well Hydrated Eye Exam: bilateral normal, bilateral abnormal EOM Ears, Nose, Throat: hearing grossly normal, normal ENT inspection Neck: non-tender, full range of motion, supple Respiratory: chest non-tender, lungs clear, normal breath sounds, no respiratory distress, no accessory muscle use Cardiovascular/Chest: normal peripheral pulses, regular rate, rhythm, no edema, no gallop Peripheral Pulses: radial,right: 2+, radial,left: 2+ Gastrointestinal/Abdominal: normal bowel sounds, non tender, soft, no organomegaly, no pulsatile mass Rectal Exam: deferred Back Exam: normal inspection Extremity: normal range of motion Neurologic: no motor/sensory deficits, alert, oriented x 3 Progress - Results/Orders Results/Orders: CT HEAD NEGATIVE OF INTRACRANIAL PROCESS. - EKG/XRAY/CT CT Ordered: No CT Interpretation Call Back: No Departure - Departure Clinical Impression: Seizure disorder, Substance abuse Cirrhosis of liver Qualifiers: Hepatic cirrhosis type: alcoholic cirrhosis Ascites presence: unspecified Qualified Code(s): K70.30 - Alcoholic cirrhosis of liver without ascites Disposition: Discharge to Home or Self Care Condition: Good Departure Forms: ED Discharge - Pt. Copy, Patient Portal Self Enrollment Instructions: DI for Concussion Diet: resume usual diet Home Medications: Ambulatory Orders Polyethylene Glycol 3350 [Miralax] 17 gm PO DAILY PRN 20 Days #20 pckt 05/11/18 Clonazepam [Klonopin] 1 mg PO TID 05/18/18 Furosemide [Lasix] 40 mg PO 05/18/18 Gabapentin 1,200 mg PO TID 05/18/18 Lactulose (Encephalopathy) [Lactulose] 10 gm PO TID 05/18/18 Levetiracetam [Keppra] 400 mg PO QID 05/18/18 Spironolactone 50 mg PO BID 05/18/18 Propranolol HCl 10 mg PO 05/21/18 QUEtiapine FUMARATE [SEROquel] 100 mg PO 05/21/18
[2018-05-21 23:02] VITALS: BP 139/72; TEMP 97; O2SAT 96
== END 2018-05-21 23:01 | disposition home or self-care (01) ==
LOC: ER 18:33
DX: G40.909 Epilepsy, unspecified, not intractable, without status epilepticus (principal); F19.10 Other psychoactive substance abuse, uncomplicated; K70.30 Alcoholic cirrhosis of liver without ascites; R51 Headache; F32.9 Major depressive disorder, single episode, unspecified; I10 Essential (primary) hypertension; E11.9 Type 2 diabetes mellitus without complications; K21.9 Gastro-esophageal reflux disease without esophagitis; Z87.891 Personal history of nicotine dependence; Z79.899 Other long term (current) drug therapy

== ENCOUNTER 2018-05-22 23:27 | Emergency (ER) | payer SELFPAY ==
[2018-05-23] MEDS ORDERED: levETIRAcetam 250 MG TAB PO ONE
[2018-05-23 00:09] VITALS: BP 154/52; TEMP 98.2; O2SAT 96
--- NOTE | 2018-05-23 00:50 | ED.PDOC ---
History of Present Illness - General Chief Complaint: Neuro Symptoms/Deficits Stated Complaint: siezures Time Seen by Provider: 05/22/18 23:37 Source: patient Exam Limitations: no limitations - History of Present Illness Initial Comments: Patient presents by EMS after he said he had a "little seizure" at his hotel. Upon arrival, he says that he is ok and that he just didn't take his evening dose of Keppra or Clonazepam. He currently has no complaints. He has been here several days this month for the same and was transferred to [facility] 4 days ago for AMS. He is not altered today. Timing/Duration: unsure Severity: mild Improving Factors: nothing Worsening Factors: nothing Associated Symptoms: denies symptoms Allergies/Adverse Reactions: Allergies No Known Drug Allergy Allergy (Verified 05/11/18 09:40) Home Medications: Ambulatory Orders Polyethylene Glycol 3350 [Miralax] 17 gm PO DAILY PRN 20 Days #20 pckt 05/11/18 Clonazepam [Klonopin] 1 mg PO TID 05/18/18 Furosemide [Lasix] 40 mg PO DAILY 05/18/18 Gabapentin 1,200 mg PO TID 05/18/18 Lactulose (Encephalopathy) [Lactulose] 2 tsp PO TID 05/18/18 Levetiracetam [Keppra] 500 mg PO TID 05/18/18 Spironolactone 25 mg PO BID 05/18/18 Propranolol HCl 10 mg PO BID 05/21/18 QUEtiapine FUMARATE [SEROquel] 100 mg PO BEDTIME 05/21/18 Acetaminophen W/ Codeine [Tylenol W/ CODEINE #3] 1 - 2 tablet PO QID PRN Milk Thistle (Silybum Marianum [Milk Thistle] 175 mg PO DAILY 05/23/18 Mirtazapine [Remeron] 15 mg PO BEDTIME 05/23/18 Tramadol HCl 50 mg PO QID PRN 05/23/18 Review of Systems - Review of Systems Constitutional: States: no symptoms reported EENTM: States: no symptoms reported Respiratory: States: no symptoms reported Cardiology: States: no symptoms reported Gastrointestinal/Abdominal: States: no symptoms reported Genitourinary: States: no symptoms reported Musculoskeletal: States: no symptoms reported Skin: States: no symptoms reported Neurological: States: see HPI Endocrine: States: no symptoms reported Hematologic/Lymphatic: States: no symptoms reported Past Medical History (General) - Patient Medical History Hx Seizures: Yes Hx Stroke: No Hx Dementia: No Hx Asthma: No Hx of COPD: No Hx Cardiac Disorders: No Hx Congestive Heart Failure: No Hx Pacemaker: No Hx Hypertension: Yes Hx Thyroid Disease: No Hx Diabetes: Yes Hx Gastroesophageal Reflux: Yes Hx Renal Disease: No Hx Cancer: No Hx of HIV: No Hx Hepatitis C: No Hx MRSA: No Surgical History: appendectomy, other - Vaccination History Hx Tetanus, Diphtheria Vaccination: No Hx Influenza Vaccination: No Hx Pneumococcal Vaccination: No - Social History Hx Tobacco Use: Yes Hx Chewing Tobacco Use: No Hx Alcohol Use: No Hx Substance Use: Yes - stated he used street drugs 4 days ago Hx Substance Use Treatment: No Hx Depression: Yes Hx Physical Abuse: No Hx Emotional Abuse: No Hx Suspected Abuse: No - Female History Patient : No - Triage Comment ED Triage Comment: Pt staying at [facility] from the hospital. Pt stated he felt a siezures coming on. Pt called EMS. Pt states he unable to read labels on his medication bottles to know what medications he needs to take. 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 05/23/18 00:59 Patient said that he would continue his normal doses as scheduled. Care instructions given. E.R. warnings given. Questions were elicited and answered. Patient voiced understanding and agreement with the plan. Departure - Departure Clinical Impression: Seizure Disposition: Discharge to Home or Self Care Condition: Good Departure Forms: ED Discharge - Pt. Copy, Patient Portal Self Enrollment Diet: resume usual diet Activity: increase activity as tolerated Home Medications: Ambulatory Orders Polyethylene Glycol 3350 [Miralax] 17 gm PO DAILY PRN 20 Days #20 pckt 05/11/18 Clonazepam [Klonopin] 1 mg PO TID 05/18/18 Furosemide [Lasix] 40 mg PO DAILY 05/18/18 Gabapentin 1,200 mg PO TID 05/18/18 Lactulose (Encephalopathy) [Lactulose] 2 tsp PO TID 05/18/18 Levetiracetam [Keppra] 500 mg PO TID 05/18/18 Spironolactone 25 mg PO BID 05/18/18 Propranolol HCl 10 mg PO BID 05/21/18 QUEtiapine FUMARATE [SEROquel] 100 mg PO BEDTIME 05/21/18 Acetaminophen W/ Codeine [Tylenol W/ CODEINE #3] 1 - 2 tablet PO QID PRN Milk Thistle (Silybum Marianum [Milk Thistle] 175 mg PO DAILY 05/23/18 Mirtazapine [Remeron] 15 mg PO BEDTIME 05/23/18 Tramadol HCl 50 mg PO QID PRN 05/23/18 Additional Instructions: Take your seizure medications as prescribed. See your regular doctor in the next 3-5 days. Return to the E.R. for worsening symptoms or seizure.
== END 2018-05-23 01:11 | disposition home or self-care (01) ==
LOC: ER 23:27
DX: R56.9 Unspecified convulsions (principal); F19.90 Other psychoactive substance use, unspecified, uncomplicated; F32.9 Major depressive disorder, single episode, unspecified; K21.9 Gastro-esophageal reflux disease without esophagitis; I10 Essential (primary) hypertension; Z79.899 Other long term (current) drug therapy; E11.9 Type 2 diabetes mellitus without complications

== ENCOUNTER → 2018-08-25 | Outpatient (CLI) | payer OTHER | LOC: LAB.O 14:54 | PROVIDERS: ATTEND Family Medicine | DX: K70.31 Alcoholic cirrhosis of liver with ascites (principal); I10 Essential (primary) hypertension ==

== ENCOUNTER 2018-09-06 01:44 | Emergency (ER) | payer OTHER ==
[2018-09-06] MEDS ORDERED: levETIRAcetam INJ 500 MG in SODIUM CHLORIDE 0.9% 100ML 100 ML IVPB ONE (02:03)
--- NOTE | 2018-09-06 02:08 | ED.PDOC ---
History of Present Illness - General Chief Complaint: Neuro Symptoms/Deficits Stated Complaint: Multiple seizures Time Seen by Provider: 09/06/18 01:55 Source: patient Exam Limitations: no limitations - History of Present Illness Initial Comments: [facility] with reported mutiple seizures. Hx of seizures and liver cirrhosis Timing/Duration: unknown Improving Factors: nothing Worsening Factors: nothing Allergies/Adverse Reactions: Allergies No Known Drug Allergy Allergy (Verified 05/11/18 09:40) Home Medications: Ambulatory Orders Polyethylene Glycol 3350 [Miralax] 17 gm PO DAILY PRN 20 Days #20 pckt 05/11/18 Clonazepam [Klonopin] 1 mg PO TID 05/18/18 Furosemide [Lasix] 40 mg PO DAILY 05/18/18 Gabapentin 1,200 mg PO TID 05/18/18 Lactulose (Encephalopathy) [Lactulose] 2 tsp PO TID 05/18/18 Levetiracetam [Keppra] 500 mg PO TID 05/18/18 Spironolactone 25 mg PO BID 05/18/18 Propranolol HCl 10 mg PO BID 05/21/18 QUEtiapine FUMARATE [SEROquel] 100 mg PO BEDTIME 05/21/18 Milk Thistle (Silybum Marianum [Milk Thistle] 175 mg PO DAILY 05/23/18 Mirtazapine [Remeron] 15 mg PO BEDTIME 05/23/18 Tramadol HCl 50 mg PO QID PRN 05/23/18 Lorazepam [Ativan] 1 mg PO Q6H PRN 09/06/18 Review of Systems - Review of Systems Constitutional: States: no symptoms reported EENTM: States: no symptoms reported Respiratory: States: no symptoms reported Cardiology: States: no symptoms reported Gastrointestinal/Abdominal: States: no symptoms reported Genitourinary: States: no symptoms reported Musculoskeletal: States: no symptoms reported Skin: States: no symptoms reported Neurological: States: seizure Endocrine: States: no symptoms reported Hematologic/Lymphatic: States: no symptoms reported Past Medical History (General) - Patient Medical History Hx Seizures: Yes Hx Stroke: No Hx Dementia: No Hx Asthma: No Hx of COPD: No Hx Cardiac Disorders: No Hx Congestive Heart Failure: No Hx Pacemaker: No Hx Hypertension: Yes Hx Thyroid Disease: No Hx Diabetes: Yes - Neuropathy Hx Gastroesophageal Reflux: Yes Hx Renal Disease: No Hx Cancer: No Hx of HIV: No Hx Hepatitis C: No Hx MRSA: No - Vaccination History Hx Tetanus, Diphtheria Vaccination: No Hx Influenza Vaccination: No Hx Pneumococcal Vaccination: No - Social History Hx Tobacco Use: Yes Hx Chewing Tobacco Use: No Hx Alcohol Use: Yes Hx Substance Use: Yes - stated he used street drugs 4 days ago Hx Substance Use Treatment: No Hx Depression: Yes Hx Physical Abuse: No Hx Emotional Abuse: No Hx Suspected Abuse: No - Female History Patient : No Family Medical History - Family History Mother Family History: Unknown Hx Family Hypertension: Yes - dad Physical Exam - Physical Exam General Appearance: Alert, No apparent distress Eye Exam: bilateral normal ENT Exam: other - blood on lips from tongue Neck: non-tender, full range of motion Respiratory: chest non-tender, lungs clear, no respiratory distress Cardiovascular/Chest: normal peripheral pulses, regular rate, rhythm Gastrointestinal/Abdominal: normal bowel sounds, non tender, soft Extremities Exam: non-tender, normal range of motion, no evidence of injury 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 Copy, Patient Portal Self Enrollment Home Medications: Ambulatory Orders Polyethylene Glycol 3350 [Miralax] 17 gm PO DAILY PRN 20 Days #20 pckt 05/11/18 Clonazepam [Klonopin] 1 mg PO TID 05/18/18 Furosemide [Lasix] 40 mg PO DAILY 05/18/18 Gabapentin 1,200 mg PO TID 05/18/18 Lactulose (Encephalopathy) [Lactulose] 2 tsp PO TID 05/18/18 Levetiracetam [Keppra] 500 mg PO TID 05/18/18 Spironolactone 25 mg PO BID 05/18/18 Propranolol HCl 10 mg PO BID 05/21/18 QUEtiapine FUMARATE [SEROquel] 100 mg PO BEDTIME 05/21/18 Milk Thistle (Silybum Marianum [Milk Thistle] 175 mg PO DAILY 05/23/18 Mirtazapine [Remeron] 15 mg PO BEDTIME 05/23/18 Tramadol HCl 50 mg PO QID PRN 05/23/18 Lorazepam [Ativan] 1 mg PO Q6H PRN 09/06/18
[2018-09-06] MEDS ORDERED: SODIUM CHLORIDE 0.9% 100ML 100 ML IVPB ONE (02:12)
[2018-09-06] MEDS ORDERED: levETIRAcetam INJ 100 MG/ML VIAL IVPB ONE (02:12)
[2018-09-06] MEDS ORDERED: LACTULOSE SYRUP 20 GM/30 ML UD PO ONE (02:30)
[2018-09-06] MEDS ORDERED: ACETAMINOPHEN 325 MG TAB PO ONE (02:38)
[2018-09-06] MEDS ORDERED: ACETAMINOPHEN 325 MG TAB ONE (02:39)
[2018-09-06 03:09] VITALS: BP 118/68; TEMP 98; O2SAT 96
== END 2018-09-06 03:10 | disposition home or self-care (01) ==
LOC: ER 01:44
DX: G40.909 Epilepsy, unspecified, not intractable, without status epilepticus (principal); K70.30 Alcoholic cirrhosis of liver without ascites; F19.10 Other psychoactive substance abuse, uncomplicated; F32.9 Major depressive disorder, single episode, unspecified; K21.9 Gastro-esophageal reflux disease without esophagitis; E11.40 Type 2 diabetes mellitus with diabetic neuropathy, unspecified; I10 Essential (primary) hypertension; Z87.891 Personal history of nicotine dependence; Z79.899 Other long term (current) drug therapy
CPT/HCPCS: 36415; 80053; 82140; 85025; J7050

== ENCOUNTER 2018-09-06 17:51 | Emergency (ER) | payer OTHER ==
[2018-09-06 18:10] VITALS: TEMP 99.3
[2018-09-06] MEDS ORDERED: levETIRAcetam INJ 1,000 MG in SODIUM CHLORIDE 0.9% 100ML 100 ML IVPB ONE (18:42)
--- NOTE | 2018-09-06 18:46 | ED.PDOC ---
History of Present Illness - General Chief Complaint: Neuro Symptoms/Deficits Stated Complaint: continued seizures Time Seen by Provider: 09/06/18 18:32 Source: patient Exam Limitations: no limitations - History of Present Illness Initial Comments: Patient presents with increasing seizure activity. He has frequent grand mal seizures and is on Keppra for that but says that today he has had about "70" seizures that have lasted from 30 seconds to 1 minute. He was here last night and given a Keppra load. He also has alcoholic cirrhosis and has noticed an increase in abdominal girth. He says that he has been vomiting blood for two days that is sometime red and sometimes "coffee ground". His ammonia last night was 62. No other complaints. Has been incarcerated for several months and denies recent illicit drug use. Timing/Duration: 24 hours Severity: severe Improving Factors: nothing Worsening Factors: nothing Associated Symptoms: other - as in HPI Allergies/Adverse Reactions: Allergies No Known Drug Allergy Allergy (Verified 05/11/18 09:40) Home Medications: Ambulatory Orders Polyethylene Glycol 3350 [Miralax] 17 gm PO DAILY PRN 20 Days #20 pckt 05/11/18 Clonazepam [Klonopin] 1 mg PO TID 05/18/18 Furosemide [Lasix] 40 mg PO DAILY 05/18/18 Gabapentin 1,200 mg PO TID 05/18/18 Lactulose (Encephalopathy) [Lactulose] 2 tsp PO TID 05/18/18 Levetiracetam [Keppra] 500 mg PO TID 05/18/18 Spironolactone 25 mg PO BID 05/18/18 Propranolol HCl 10 mg PO BID 05/21/18 QUEtiapine FUMARATE [SEROquel] 100 mg PO BEDTIME 05/21/18 Milk Thistle (Silybum Marianum [Milk Thistle] 175 mg PO DAILY 05/23/18 Mirtazapine [Remeron] 15 mg PO BEDTIME 05/23/18 Tramadol HCl 50 mg PO QID PRN 05/23/18 Lorazepam [Ativan] 1 mg PO Q6H PRN 09/06/18 Review of Systems - Review of Systems Constitutional: States: no symptoms reported EENTM: States: no symptoms reported Respiratory: States: no symptoms reported Cardiology: States: no symptoms reported Gastrointestinal/Abdominal: States: see HPI Genitourinary: States: hematuria Musculoskeletal: States: no symptoms reported Skin: States: no symptoms reported Neurological: States: see HPI Endocrine: States: no symptoms reported Hematologic/Lymphatic: States: no symptoms reported Past Medical History (General) - Patient Medical History Hx Seizures: Yes Hx Stroke: No Hx Dementia: No Hx Asthma: No Hx of COPD: No Hx Cardiac Disorders: No Hx Congestive Heart Failure: No Hx Pacemaker: No Hx Hypertension: Yes Hx Thyroid Disease: No Hx Diabetes: Yes - Neuropathy Hx Gastroesophageal Reflux: Yes Hx Renal Disease: No Hx Cancer: No Hx of HIV: No Hx Hepatitis C: No Hx MRSA: No - Vaccination History Hx Tetanus, Diphtheria Vaccination: No Hx Influenza Vaccination: No Hx Pneumococcal Vaccination: No - Social History Hx Tobacco Use: Yes Hx Chewing Tobacco Use: No Hx Alcohol Use: Yes Hx Substance Use: Yes - stated he used street drugs 4 days ago Hx Substance Use Treatment: No Hx Depression: Yes Hx Physical Abuse: No Hx Emotional Abuse: No Hx Suspected Abuse: No - Female History Patient : No Family Medical History - Family History Mother Family History: Unknown Hx Family Hypertension: Yes - dad Physical Exam - Physical Exam General Appearance: Lethargic Eye Exam: bilateral normal Ears, Nose, Throat: normal ENT inspection Neck: non-tender, full range of motion, supple Respiratory: lungs clear, normal breath sounds Cardiovascular/Chest: normal peripheral pulses, regular rate, rhythm, no edema Gastrointestinal/Abdominal: normal bowel sounds, non tender, soft, distended Back Exam: normal inspection, no CVA tenderness Extremity: normal range of motion, non-tender, normal inspection, no pedal edema Neurologic: no motor/sensory deficits, alert, oriented x 3, other - slow conversational pace Skin Exam: normal color Lymphatic: no adenopathy Progress - Progress Progress: 09/06/18 20:36 09/06/18 18:51 LEVETIRACETAM (KEPPRA) Stat Laboratory Results - last 24 hr 09/06/18 09/06/18 09/06/18 18:50 18:50 19:10 WBC 4.5 L RBC 4.32 L Hgb 14.5 Hct 41.1 L MCV 95.0 H MCH 33.5 H MCHC 35.2 RDW 13.5 Plt Count 82 L MPV 8.6 Absolute Neuts (auto) 2.10 Absolute Lymphs (auto) 1.60 Absolute Monos (auto) 0.40 Absolute Eos (auto) 0.40 Absolute Basos (auto) 0.00 Neutrophils % 46.0 Lymphocytes % 35.4 Monocytes % 9.1 H Eosinophils % 8.6 H Basophils % 0.9 Sodium Potassium Chloride Carbon Dioxide Anion Gap BUN Creatinine BUN/Creatinine Ratio Random Glucose Serum Osmolality Calcium Total Bilirubin AST ALT Alkaline Phosphatase Ammonia Serum Total Protein Albumin Globulin Albumin/Globulin Ratio Urine Color Yellow Urine Appearance Clear Urine pH 7.0 Ur Specific [place] 1.010 Urine Protein Negative Urine Glucose (UA) Negative Urine Ketones Negative Urine Blood Negative Urine Nitrite Negative Urine Bilirubin Negative Urine Urobilinogen 0.2 Ur Leukocyte Esterase Negative Urine RBC 3-5 H Urine WBC 0 Ur Epithelial Cells 1-3 Urine Bacteria Rare Urine Opiates Screen Negative Urine Barbiturates Negative Ur Phencyclidine Scrn Negative U Amphetamin/Meth Scrn Negative U Benzodiazepines Scrn Negative U Cocaine Metab Screen Negative U Cannabinoids Screen Negative 09/06/18 09/06/18 19:10 19:10 WBC RBC Hgb Hct MCV MCH MCHC RDW Plt Count MPV Absolute Neuts (auto) Absolute Lymphs (auto) Absolute Monos (auto) Absolute Eos (auto) Absolute Basos (auto) Neutrophils % Lymphocytes % Monocytes % Eosinophils % Basophils % Sodium 140 Potassium 4.0 Chloride 107 Carbon Dioxide 27 Anion Gap 10.0 L BUN 10 Creatinine 0.77 BUN/Creatinine Ratio 13.0 Random Glucose 90 Serum Osmolality 278.0 Calcium 9.5 Total Bilirubin 0.9 AST 29 ALT 22 Alkaline Phosphatase 78 Ammonia 61 H* Serum Total Protein 8.0 Albumin 4.3 Globulin 3.7 H Albumin/Globulin Ratio 1.2 Urine Color Urine Appearance Urine pH Ur Specific [place] Urine Protein Urine Glucose (UA) Urine Ketones Urine Blood Urine Nitrite Urine Bilirubin Urine Urobilinogen Ur Leukocyte Esterase Urine RBC Urine WBC Ur Epithelial Cells Urine Bacteria Urine Opiates Screen Urine Barbiturates Ur Phencyclidine Scrn U Amphetamin/Meth Scrn U Benzodiazepines Scrn U Cocaine Metab Screen U Cannabinoids Screen Ammonia 61. Patient's baseline is 30-40. This may be causing an increase in his seizure activity. He also reports vomiting blood so he will need an upper GI endscopy. His cirrhosis and resulting hyperammonemia seems to be the etiology of today's complaints. Accepted at [facility]. Departure - Departure Clinical Impression: Hyperammonemia, Seizure, Hematemesis Disposition: Transfer to Hospital Condition: Fair Departure Forms: ED Discharge - Pt. Copy, Patient Portal Self Enrollment Diet: other - NPO Activity: as per physical therapy Home Medications: Ambulatory Orders Polyethylene Glycol 3350 [Miralax] 17 gm PO DAILY PRN 20 Days #20 pckt 05/11/18 Clonazepam [Klonopin] 1 mg PO TID 05/18/18 Furosemide [Lasix] 40 mg PO DAILY 05/18/18 Gabapentin 1,200 mg PO TID 05/18/18 Lactulose (Encephalopathy) [Lactulose] 2 tsp PO TID 05/18/18 Levetiracetam [Keppra] 500 mg PO TID 05/18/18 Spironolactone 25 mg PO BID 05/18/18 Propranolol HCl 10 mg PO BID 05/21/18 QUEtiapine FUMARATE [SEROquel] 100 mg PO BEDTIME 05/21/18 Milk Thistle (Silybum Marianum [Milk Thistle] 175 mg PO DAILY 05/23/18 Mirtazapine [Remeron] 15 mg PO BEDTIME 05/23/18 Tramadol HCl 50 mg PO QID PRN 05/23/18 Lorazepam [Ativan] 1 mg PO Q6H PRN 09/06/18
--- NOTE | 2018-09-06 19:11 | CT ---
CLINICAL HISTORY: increasing seizures, alcoholism, question SA[facility] COMPARISON: May 21, 2018. TECHNIQUE: CT HEAD WITHOUT IV CONTRAST on 09/06/2018 6:48 PM [facility] This exam was performed according to our departmental dose-optimization program, which includes automated exposure control, adjustment of the mA and/or kV according to patient size and/or use of iterative reconstruction technique. FINDINGS: There is no acute hemorrhage, mass effect or midline shift. Truong-white differentiation is preserved. There is no hydrocephalus. There is no significant volume loss for age. The calvarium is intact. Orbits and globes are unremarkable. The paranasal sinuses are clear. Mastoid air cells are clear. IMPRESSION: No acute intracranial findings. Electronically signed by: Robel Deutsch MD 09/06/2018 7:09 PM [facility]
[2018-09-06] MEDS ORDERED: SODIUM CHLORIDE 0.9% 100ML 100 ML IVPB ONE (19:14)
[2018-09-06] MEDS ORDERED: levETIRAcetam INJ 100 MG/ML VIAL IVPB ONE (19:14)
[2018-09-06 20:19] VITALS: BP 108/64; O2SAT 95
== END 2018-09-06 21:39 | disposition short-term general hospital (02) ==
LOC: ER 17:51
DX: R56.9 Unspecified convulsions (principal); K92.0 Hematemesis; E72.20 Disorder of urea cycle metabolism, unspecified; K21.9 Gastro-esophageal reflux disease without esophagitis; I10 Essential (primary) hypertension; E11.40 Type 2 diabetes mellitus with diabetic neuropathy, unspecified; F32.9 Major depressive disorder, single episode, unspecified; Z79.899 Other long term (current) drug therapy; Z87.891 Personal history of nicotine dependence
CPT/HCPCS: 36415; 70450; 80053; 80307; 81001; 82140; 85025; J7050

== ENCOUNTER → 2018-12-25 | Outpatient (CLI) | payer OTHER | LOC: LAB.O 11:45 | PROVIDERS: ATTEND Nurse Practitioner Family | DX: K74.69 Other cirrhosis of liver (principal) ==

== ENCOUNTER → 2019-01-14 | Outpatient (CLI) | payer OTHER | LOC: LAB.O 11:41 | PROVIDERS: ATTEND Nurse Practitioner Family | DX: K74.69 Other cirrhosis of liver (principal) ==

== ENCOUNTER → 2019-01-22 | Outpatient (CLI) | payer OTHER | LOC: LAB.O 12:57 | PROVIDERS: ATTEND Nurse Practitioner Family | DX: K74.69 Other cirrhosis of liver (principal) ==

== ENCOUNTER → 2019-02-13 | Outpatient (CLI) | payer OTHER | LOC: LAB.NP 09:59 | PROVIDERS: ATTEND Nurse Practitioner Family | DX: K74.69 Other cirrhosis of liver (principal) ==

== ENCOUNTER → 2019-03-02 | Outpatient (CLI) | payer OTHER | LOC: LAB.O 12:34 | PROVIDERS: ATTEND Nurse Practitioner Family | DX: K74.69 Other cirrhosis of liver (principal) ==

== ENCOUNTER → 2019-04-17 | Outpatient (CLI) | payer OTHER | LOC: LAB.O 12:22 | PROVIDERS: ATTEND Nurse Practitioner Family | DX: K74.69 Other cirrhosis of liver (principal) ==

== ENCOUNTER → 2020-09-27 | Outpatient (CLI) | payer OTHER | LOC: LAB.O 12:20 | PROVIDERS: ATTEND Nurse Practitioner Family | DX: K70.30 Alcoholic cirrhosis of liver without ascites (principal); E11.9 Type 2 diabetes mellitus without complications ==

== ENCOUNTER → 2020-10-04 | Outpatient (CLI) | payer OTHER | LOC: LAB.O 12:50 | PROVIDERS: ATTEND Nurse Practitioner Family | DX: K74.69 Other cirrhosis of liver (principal) ==